=== PATIENT | male | born 1960 | race Caucasian/White ===

== ENCOUNTER 2017-05-14 16:35 | Emergency (ER) | payer OTHER, MEDICAID ==
--- NOTE | 2017-05-14 17:49 | EDPHY ---
H & P Time Seen by Provider: 05/14/17 16:54 HPI/ROS: CHIEF COMPLAINT: SI, M1 HISTORY OF PRESENT ILLNESS: The patient is a 56 y/o male arriving via [employer] officer from senior care on and M1 hold after he made a suicidal statement. He says a few days ago "me and my were getting verbal and she was getting real loud in my ear" and he was ultimately arrested after he struck his . He was in senior care for a few days but says the conditions were horrible so he told officers he was suicidal. He states, "I couldn't hack it there. It was too much for my shoulders and hernias" and "I thought they'd take me to a hospital so I said yeah I'm going to commit suicide." The senior care released him on hurtado and placed him on an M1 hold and transported him here. He denies any current suicidal ideation stating, "I have never been suicidal in my life" and "I'm much happier now that I'm here." He denies any acute complaints. He has a history of bipolar disorder and says he is compliant with his medications and has been admitted 4 times to psychiatric hospitals. REVIEW OF SYSTEMS: Constitutional: no fever, no chills Eyes: No visual changes ENT: No sore throat Respiratory: +chronic cough, no shortness of breath Cardiac: No chest pain Gastrointestinal: No nausea, no vomiting, no abdominal pain Genitourinary: No hematuria, no dysuria Musculoskeletal: No leg pain or swelling Skin: No rash Neurological: No headache, no numbness, no weakness Psychiatric: depression (Mari Vieyra) - Medical/Surgical History PMH: PMH includes: 1. Bipolar disorder - lithium, Seroquel, clonidine; mental health admissions x4 2. Colostomy and multiple abdominal surgeries 3. Abdominal hernias (Mari Vieyra) - Social History Additional Social History: Daily smoker. Lives in [place]. Disabled. (Mari Vieyra) - Physical Exam Exam: General Appearance: Alert, no distress, sitting in bed eating. Eyes: Pupils equal and round, no conjunctival pallor or injection ENT, Mouth: Mucous membranes moist Neck: Normal inspection Respiratory: Lungs are clear to auscultation Cardiovascular: Regular rate and rhythm Gastrointestinal: Abdomen is soft and non- tender Neurological: A&O, nonfocal, normal gait Skin: Warm and dry, no rash Extremities: Nontender, no pedal edema Psychiatric: Mood and affect normal (Mari Vieyra) Constitutional: Initial Vital Signs Temperature (C) 37.2 C 05/14/17 16:35 Heart Rate 63 05/14/17 16:35 Respiratory Rate 16 05/14/17 16:35 Blood Pressure 169/101 H 05/14/17 16:35 O2 Sat (%) 97 05/14/17 16:35 O2 Delivery Mode Room Air Allergies/Adverse Reactions: cefaclor [From Ceclor] Allergy (Mild, Verified 07/24/11 13:12) Anaphylaxis Sulfa (Sulfonamide Antibiotics) Allergy (Mild, Verified 07/24/11 13:12) Anaphylaxis haloperidol [From Haldol] Allergy (Verified 07/24/11 13:12) haloperidol lactate [From Haldol] Allergy (Verified 07/24/11 13:12) morphine Allergy (Verified 07/24/11 13:12) Home Medications: Medication Instructions Recorded Allopurinol 05/14/17 Clonidine HCl 05/14/17 Ibuprofen 05/14/17 Levemir 05/14/17 [place] Carbonate 05/14/17 Metformin HCl 05/14/17 Metoprolol Succinate 05/14/17 Seroquel 05/14/17 traMADol 05/14/17 Medical Decision Making ED Course/Re-evaluation: 0652AM: Patient on M1 hold. Suicidal. Patient has been evaluated and needs mental health placement. Patient signed over to Dr. Aj Crabtree at 7am Shift- change. (Ludwig Hamm) Patient denies any current or prior suicidal ideation and expresses that he was just trying to get out of senior care. He is hemodynamically stable without any acute complaints. Plan for standard psychiatric labs then mental health evaluation. ( Mari Vieyra) Other Provider: 0700 Care assumed by me from Dr Hamm pending placement 0900 patient has been accepted to [place] by Dr. proctor. I have completed the EMT A LA. (Lenny Crabtree) - Data Points Laboratory Results: Laboratory Results 05/14/17 18:25 05/14/17 17:15 Medications Given: Discontinued Medications [place] Carbonate (Lithobid) 300 mg PO EDNOW ONE Stop: 05/15/17 00:22 Last Admin: 05/15/17 01:10 Dose: 300 mg [place] Carbonate (Lithobid) 300 mg PO EDNOW ONE Stop: 05/15/17 07:49 Last Admin: 05/15/17 08:20 Dose: 300 mg Nicotine (Nicoderm Cq) 21 mg TD EDNOW ONE Stop: 05/14/17 17:52 Last Admin: 05/14/17 17:59 Dose: 21 mg Polyethylene Glycol (Miralax) 17 gm PO EDNOW ONE Stop: 05/15/17 07:49 Last Admin: 05/15/17 07:58 Dose: 17 gm Quetiapine Fumarate (Seroquel) 400 mg PO EDNOW ONE Stop: 05/15/17 00:22 Last Admin: 05/15/17 00:30 Dose: 400 mg Tramadol HCl (Ultram) 50 mg PO EDNOW ONE Stop: 05/14/17 17:55 Last Admin: 05/14/17 17:59 Dose: 50 mg Departure - Departure Disposition: Other Psych, Not [facility] Clinical Impression: Suicidal ideation Condition: Good Instructions: Suicide Prevention for Adults (ED) Additional Instructions: Follow up with your psychiatrist this week. Return for worsening of condition. Referrals: [facility],. [Clinic] - As per Instructions Report Scribed for: Mari Vieyra Report Scribed by: Isabel Tenorio Date of Report: 05/14/17 Time of Report: 21:32 Physician Review and Approval Statement: 05/14/17 21:32 Portions of this note were transcribed by a medical radiation dosimetrist. I personally performed a history, physical exam, medical decision making, and confirmed accuracy of information the transcribed note. (Mari Vieyra)
[2017-05-14] MEDS ORDERED: NICOTINE 21 MG/24 HR PATCH TD ONE ×2 (17:51→17:54)
[2017-05-14] MEDS ORDERED: traMADol 50 MG TAB PO ONE (17:54)
[2017-05-14 18:31] LABS: PLATELET COUNT 275 10^3/uL (150-400)
[2017-05-15] MEDS ORDERED: QUEtiapine FUMARATE 200 MG TAB PO ONE (00:21)
[2017-05-15] MEDS ORDERED: LITHIUM CARBONATE ER 300 MG TAB PO ONE ×2 (00:21→07:48)
[2017-05-15] MEDS ORDERED: POLYETHYLENE GLYCOL 3350 17 GM PKT PO ONE (07:48)
[2017-05-15 07:53] VITALS: RESP 16
[2017-05-15 10:23] VITALS: BP 153/94; PULSE 70; TEMP 97.9; O2SAT 96
== END 2017-05-15 10:25 ==
DX: R45.851 Suicidal ideations (principal); F17.200 Nicotine dependence, unspecified, uncomplicated
CPT/HCPCS: 80305; G0480

== ENCOUNTER 2018-02-13 23:12 | Inpatient (IN) | payer MEDICAID, OTHER ==
--- NOTE | 2018-02-13 23:22 | EDPHY ---
H & P Time Seen by Provider: 02/13/18 23:22 HPI/ROS: HPI CHIEF COMPLAINT: Sent from long term concern of little ileostomy output, bilateral lower extremity swelling HISTORY OF PRESENT ILLNESS: 57-year-old male, Sleepy, history of chronic medical problems including hypertension, bipolar disorder, presents emergency room from long term due to possible concern of ileostomy output worsening bilateral lower extremity swelling. Additionally hypertension. Patient arrived to the emergency room where I greeted him and ER room 11. The patient states he has no complaints however he is extremely poor historian and answers hardly any of my questions. [facility] staff at bedside said this close to his baseline. According to long term staff he has not been eating or drinking. Past Medical History: Significant medical history for hypertension, bipolar disorder on lithium, diabetes, ileostomy Past Surgical History: Patient has a ileostomy due to ex lap, perforated bowel Social History: Currently incarcerated. Family History: Noncontributory ROS REVIEW OF SYSTEMS: Extremity limited. Patient does not answer any of my questions. Often answers "I dont know to everything" Exam Constitutional Sleepy, nontoxic appearing, triage nursing summary reviewed, vital signs reviewed, awake/alert. Eyes normal conjunctivae and sclera, EOMI, PERRLA. HENT normal inspection, atraumatic, moist mucus membranes, no epistaxis, neck supple/ no meningismus, no raccoon eyes. Respiratory clear to auscultation bilaterally, normal breath sounds, no respiratory distress, no wheezing. Cardiovascular rate normal, regular rhythm, no murmur, no edema, distal pulses normal. Gastrointestinal soft abdomen, large midline incision, ileostomy left lower quadrant, there is output in the ileostomy comma no rebound, no guarding, normal bowel sounds, no distension, no pulsatile mass. Genitourinary no CVA tenderness. Musculoskeletal bilateral lower extremity pitting edema bilaterally, erythema to bilateral anterior lower legs., full range of motion, no calf swelling, no tenderness of extremities, no meningismus, good pulses, neurovascularly intact. Skin pitting edema, erythema bilateral leg. Neurologic sleepy, does not answer questions, moves all 4 extremities equally , motor intact, sensory intact, CN II-XII intact, normal cerebellar, normal vision, normal speech. Psychiatric flat affect, does not answer questions Heme/Lymph/Immune no lymphadenopathy. Differential Diagnosis: Includes but is not limited to in a particular order electrolyte disturbance, dehydration, lithium toxicity, medication side effect, drug intoxication, sepsis, infection, bowel obstruction Medical Decision Making: IV establishment, blood draw, lactic acid, chest x-ray , KUB, urinalysis, drug screen, lithium level, check electrolytes, chest x-ray EKG troponin re-evaluate. Re-evaluation: EKG interpretation by me on record in [employer] system. Impression time of EKG 2240, sinus rhythm rate of 71 nonspecific intraventricular conduction delay present. No acute ischemia. 1218: Patient noted be somewhat sleepy upon arrival to the emergency room. Unclear if this medication do says he took his nightly Seroquel. CT scan head without contrast negative for acute traumatic injury or bleed. Chest x-ray reviewed by myself. Cardiomegaly but no failure. KUB x-ray reviewed by myself. No evidence of abnormal bowel gas pattern. Patient re-evaluate this time he sleeping resting comfortably. Vital signs stable blood pressure improved. Patient has so for an unremarkable workup for lethargy, bilateral lower extremity edema. I will admit to the hospitalist service given how lethargic he is comma poor historian, bilateral lower extremity edema Troponin is noted be negative EKG nonischemic. Chest x-ray KUB and CT scan head without contrast all reviewed. Chemistry panel reviewed. A blood glucose was low at 41. Will give a amp D50. He has not been eating and drinking. Source: Patient, Police, EMS - Medical/Surgical History Hx Asthma: No Hx Chronic Respiratory Disease: No Hx Diabetes: Yes Hx Cardiac Disease: No Hx Renal Disease: No Hx Cirrhosis: No Hx Alcoholism: No Hx HIV/AIDS: No Hx Splenectomy or Spleen Trauma: No Other PMH: DM, HTN, bipolar, chronic pain - Social History Smoking Status: Current every day smoker Constitutional: Initial Vital Signs Temperature (C) 36.7 C 02/13/18 23:26 Heart Rate 78 02/13/18 23:26 Respiratory Rate 18 02/13/18 23:26 Blood Pressure 156/83 H 02/13/18 23:26 O2 Sat (%) 95 02/13/18 23:26 O2 Delivery Mode Room Air Allergies/Adverse Reactions: cefaclor [From Ceclor] Allergy (Mild, Verified 07/24/11 13:12) Anaphylaxis Sulfa (Sulfonamide Antibiotics) Allergy (Mild, Verified 07/24/11 13:12) Anaphylaxis haloperidol [From Haldol] Allergy (Verified 07/24/11 13:12) haloperidol lactate [From Haldol] Allergy (Verified 07/24/11 13:12) morphine Allergy (Verified 07/24/11 13:12) Penicillins Allergy (Verified 02/14/18 12:07) Home Medications: Medication Instructions Recorded Albuterol [Proventil Inhaler HFA 2 puffs IH Q4H PRN 02/14/18 (*)] Allopurinol [Allopurinol 100 MG 100 mg PO BID 02/14/18 (*)] Fluconazole [Diflucan (*)] 150 mg PO ONCE 02/14/18 Furosemide [Lasix 20 MG (*)] 20 mg PO BID 02/14/18 [place] Carbonate ER [Lithobid 300 300 mg PO HS 02/14/18 mg (*)] Metformin HCl [Metformin 1000 mg] 1,000 mg PO BID 02/14/18 Metoprolol Succinate Xr [Toprol Xl 25 mg PO DAILY 02/14/18 25 mg (*)] Potassium Cl [Klor-Con] 10 meq PO DAILY 02/14/18 QUEtiapine FUMARATE [Seroquel 600 mg PO HS 02/14/18 300mg (*)] Zinc Oxide [Zinc Oxide Ointment 1 naomie TP DAILY 02/14/18 (*)] clonIDINE [Catapres (*)] 0.1 mg PO DAILY 02/14/18 traMADol [Ultram 50 mg (*)] 100 mg PO BID 02/14/18 Medical Decision Making - Data Points Laboratory Results: Laboratory Results 02/13/18 23:55 02/13/18 23:55 Medications Given: Acetaminophen (Tylenol) 650 mg PO Q4HRS PRN PRN Reason: Pain, Mild/Fever, Can Take PO Stop: 08/13/18 01:15 Last Admin: 02/14/18 23:10 Dose: 650 mg Allopurinol (Allopurinol) 100 mg PO BID JOSEPH Stop: 08/13/18 20:59 Last Admin: 02/14/18 19:33 Dose: 100 mg Dextrose (Dextrose 50% Syringe) 25 gm IVP PRN PRN PRN Reason: Hypoglycemia Stop: 08/13/18 02:35 Last Admin: 02/14/18 14:39 Dose: 25 gm Enoxaparin Sodium (Lovenox) 40 mg SC DAILY JOSEPH Stop: 08/13/18 08:59 Last Admin: 02/14/18 09:19 Dose: 40 mg Furosemide (Lasix) 20 mg PO BID JOSEPH Stop: 08/13/18 20:59 Last Admin: 02/14/18 19:33 Dose: 20 mg Ertapenem 1 gm/ Sodium (Chloride) 100 mls @ 200 mls/hr IV Q24H JOSEPH Stop: 03/16/18 02:14 Last Admin: 02/15/18 02:03 Dose: 100 mls Dextrose/Sodium Chloride (D5w Ns) 1,000 mls @ 125 mls/hr IV CONT JOSEPH Stop: 08/13/18 05:44 Last Admin: 02/14/18 05:55 Dose: 1,000 mls Dextrose (D10w) 1,000 mls @ 100 mls/hr IV CONT JOSEPH Stop: 08/13/18 06:44 Last Admin: 02/14/18 20:33 Dose: 1,000 mls [place] Carbonate (Lithobid) 300 mg PO HS JOSEPH Stop: 08/13/18 20:59 Last Admin: 02/14/18 20:18 Dose: 300 mg Quetiapine Fumarate (Seroquel) 600 mg PO HS [facility] Stop: 08/13/18 20:59 Last Admin: 02/14/18 19:33 Dose: 600 mg Discontinued Medications Dextrose (Dextrose 50% Syringe) 25 gm IVP PRN PRN PRN Reason: Dizziness Stop: 08/13/18 01:05 Last Admin: 02/14/18 01:11 MST Dose: 25 gm Sodium Chloride (Ns) 500 mls @ 0 mls/hr IV ONCE ONE PRN Reason: Wide Open Stop: 02/14/18 00:12 Last Admin: 02/14/18 00:19 Dose: 500 mls Sodium Chloride (Ns) 1,000 mls @ 125 mls/hr IV CONT [facility] Stop: 08/13/18 01:59 Last Admin: 02/14/18 03:29 Dose: 1,000 mls Point of Care Test Results: Chemistry 02/13/18 23:59 POC Troponin I 0.01 ng/mL ng/mL (0.00-0.08) Departure - Departure Disposition: [facility] Acute Clinical Impression: Altered mental status, Hypoglycemia, PHILIP (acute kidney injury), Venous stasis Condition: Fair
[2018-02-14 00:05] LABS: PLATELET COUNT 396 10^3/uL (150-400)
[2018-02-14] MEDS ORDERED: NS 500 ML IV ONE (00:11)
[2018-02-14 00:14] LABS: INR 0.97 (0.83-1.16); PROTIME(PATIENT) 13.1 SEC (12.0-15.0)
[2018-02-14] MEDS ORDERED: D50W 25 GM/50 ML SYR IVP ONE (01:06)
[2018-02-14] MEDS ORDERED: D50W 25 GM/50 ML SYR IVP PRN (01:06)
[2018-02-14] MEDS ORDERED: ONDANSETRON 4 MG/2 ML VIAL IVP PRN (01:16)
[2018-02-14] MEDS ORDERED: ONDANSETRON DISINTEGRATING 4 MG TAB PO PRN (01:16)
[2018-02-14] MEDS ORDERED: levOFLOXACIN 500 MG/DEXTROSE 100 ML IV SCH (01:45)
[2018-02-14] MEDS ORDERED: NS 1,000 ML IV SCH (02:00)
[2018-02-14] MEDS ORDERED: ERTAPENEM 1 GM in NS 100 ML IV ONE (02:15)
[2018-02-14] MEDS: ERTAPENEM 1 GM in NS 100 ML IV SCH (02:43)
--- NOTE | 2018-02-14 05:04 | GHP ---
DATE OF ADMISSION: 02/14/2018 PRIMARY CARE PHYSICIAN: Kalina Chavira MD Patient currently incarcerated, under care of [facility]. SOURCE: The patient is not able to provide a significant amount of history. At this time, he is quite somnolent, falls asleep during the interview. EMR was reviewed and case discussed with ED provider. Officer at bedside is very familiar with the patient and reports patient had complained of some abdominal pain at the ostomy output site and had just been increasingly fatigued and somnolent with increasing lower extremity edema. No known complaints of chest pain or shortness of breath. The patient has had quite poor oral intake over the last several days. No known fevers or chills. REVIEW OF SYSTEMS: The patient currently is complaining of chronic coccyx pain. He has a history of a fracture there. Otherwise, he falls asleep and unable to obtain remainder of review of systems. ALLERGIES: Sulfa, penicillin, Ceclor, Haldol. MEDICATIONS: Current medications as per customer strategy manager's office med list: Albuterol inhaled 2 puffs four times daily p.r.n., allopurinol 100 mg twice daily, clonidine 0.1 mg daily, Diflucan 150 mg per day for 3 doses, start date 2017, Lasix 20 mg twice daily, lithium ER 600 mg at bedtime, metformin 1000 mg twice daily, metoprolol 25 mg p.o. daily, potassium 10 mEq daily, Seroquel 600 mg at bedtime, tramadol 100 mg twice daily. Lantus 35 units daily, 15 units HS. VITAL SIGNS: Listed at customer strategy manager's office: Blood pressure 160/90, heart rate 91 , O2 saturation 92%. On 02/11/2018, blood pressure 120/80, pulse 71, O2 saturation 90%. PAST MEDICAL HISTORY: Listed as diabetes type 2, bipolar disorder, chronic pain , HTN, morbid obesity, lower extremity edema, coccyx fracture and chronic pain initial event occurring 7 years ago. PAST SURGICAL HISTORY: Colostomy for history of a perforation, abdominal hernias. FAMILY HISTORY: Unable to obtain secondary to patient's mentation. SOCIAL HISTORY: Patient is currently incarcerated. He has listed history of tobacco use. Unable to clarify if any illicit drug use or alcohol use due to patient's altered mental status. CODE STATUS: Unable to verify with the patient as noted above. He will remain full code. PHYSICAL EXAMINATION: VITAL SIGNS: As listed on patient's [facility] paperwork, vital signs at 9:30 p.m., blood pressure 169/90, pulse 91, O2 saturation 92% on room air. Current vitals upon arrival to the ED: Blood pressure 156/83, heart rate 78, respiratory rate 18, O2 saturation 95% on room air, temperature 36.7. Current vitals available: Blood pressure 104/56, heart rate is 61, respiratory rate 16, O2 saturation 99 on room air, and temperature 36.9. GENERAL: No acute distress. Patient appears chronically ill. He is somnolent, confused. He will open his eyes and follow a few simple commands, but falls asleep. Morbidly obese gentleman appears older than stated age. HEAD : Normocephalic, atraumatic. EYES: Limited evaluation secondary to patient's somnolence, but pupils are equal, round, with decreased reactivity to light bilaterally and symmetric. No scleral icterus, conjunctival injection. ENT: Mucous membranes appear dry. Dentition in fair condition. No nasal discharge. NECK: Supple. Trachea midline. CV: Slightly bradycardic in the 50s. No murmurs, rubs, or gallops appreciated. RESPIRATORY: Unlabored breathing. Diminished in air movement and inspiratory effort, but otherwise clear to auscultation bilaterally. ABDOMEN: Obese, nondistended, soft. Patient has a colostomy bag on the right lower quadrant. There is minimal to no stool in the ostomy bag. His abdomen is quite soft. No apparent distention. No guarding. The patient has a large midline surgical scar. : No suprapubic tenderness to palpation. No Trivedi catheter in place. SKIN: Erythema below the pannus. His lower extremities have chronic appearing skin changes with some more acute appearing erythema that is blanchable. He has significant 2 to 3+ pitting edema bilateral lower extremities. He has some bruising on his toes. No other rashes or sores observed on exposed extremities. NEURO: Limited assessment secondary to patient's somnolence. When he is awake, there is no apparent facial drooping. He is able to move extremities and roll to his side independently. PSYCH: Patient is confused. He is not agitated. Officer at bedside reports that generally patient's baseline personality is to be abrasive and uncooperative. LABORATORY STUDIES: WBC is 11.85, H and H 13.9, 41.6, MCV of 89.3, platelet count is 396. No bands. PT is 13.1, INR 0.97, PTT is 33.3. ABG, pH is 7.39, pCO2 is 45, PO2 66, bicarb 27, O2 saturation 92, base excess 1.8. Patient's initial VBG: Lactic acid 2.3. After 500 cc bolus of saline, declined to 1.8. Sodium is 139, potassium is 4.7, chloride 98, CO2 is 29, anion gap is 12, BUN is 23, creatinine is 1.4. The patient's baseline creatinine is 0.9 to 1.1. Glucose 41, repeat after D50 is 115. Magnesium 1.8, total bilirubin is 1.0, ALT is 43, AST is 38, alk phos is 187. Troponin POC is 0.01. BTNP is 53. Total protein 7.9, albumin 4.4, lipase 35. TSH is 1.480. UA: Specific gravity 1.004, pH of 6.0, 1+ blood, 3+ leuk esterase, RBCs 5-10, WBCs 50-182. Moderately turbid yellow urine. U-tox is negative. [place]thing[place] level 1.4. Ethyl alcohol negative. CT head: Preliminary report reviewed, image reviewed. Negative. Abdominal x- ray image reviewed, report is still pending. Nonspecific bowel gas pattern. No signs of obstruction. Chest showing some cardiomegaly. No consolidation. No evidence of pneumonia. EKG was reviewed myself showing sinus rhythm without any acute ST changes. QTc 48. Right bundle branch block and left posterior fascicular block. No previous EKGs for comparison. ASSESSMENT/PLAN: A 57-year-old gentleman with a past medical history significant for bipolar disorder, diabetes, chronic pain, morbid obesity, hypertension, who presents to the emergency department today with several day history of increasing lethargy, declining oral intake. 1. Acute encephalopathy, likely multifactorial, including infectious process with a UTI, psychiatric related to medications. Patient's lithium level is minimally elevated. He does appear dehydrated. IV fluids in process. He also has hypoglycemia, which has been corrected, and he remains quite somnolent. He is afebrile without a leukocytosis. He does not meet sepsis criteria. Urine does appear to be quite abnormal. Urine culture is pending. No previous history of UTIs listed. The patient initially did complain of some abdominal pain; however, x-ray and physical exam are not impressive for an acute process. Abdomen is soft and nonsurgical. If patient does not show any significant improvement after initiation of IV fluids and antibiotics, consider abdominal scan. 2. Urinary tract infection. Patient with pyuria. Unable to assess for any kind of symptoms, but has generalized weakness for last several days and decreased appetite. Given his prolonged QT and his use of antipsychotics, patient has been started on ertapenem as he does have Ceclor allergy. I was not able to clarify with him his exact allergy due to his mentation. Will await urine cultures and adjust antibiotics as appropriate. 3. Acute kidney injury, likely prerenal in nature. Patient has received a small IV fluid bolus in the emergency department. He has no previous listed history of heart failure. BTNP is negative. We will go ahead and continue with aggressive IV fluid hydration, repeat a BMP in the morning. 4. Hypoglycemia. The patient is currently only on metformin. He has not had a significant amount oral intake in the last 2-3 days by report. 5. Acute kidney injury. Hold off on additional treatment. 6. Diabetes. The patient will be placed on hypoglycemia protocol and Accu- Cheks will be monitored q.6 until patient's mentation does improve. If he continues to have a decline in his glucose levels, then will consider initiation of D5 supplementation as IV. patient with PHILIP and on long acting insulin likely worsening clearance and subsequently causing hypoglycemia. patient also with reported poor oral intake for the last 2-3 days. continue with IVF hydration as noted. 7. Increasing lower extremity edema. Despite this report, patient does appear clinically dehydrated. Will continue on IV fluids. BTNP is not elevated. His lung vargas are clear, but he does have some cardiomegaly. We will obtain an echocardiogram. 8. Benign essential hypertension. Currently, patient's blood pressures are declining low normal. Continue with IV fluids, likely related to hypovolemia. Intravascular volume depletion. Continue to monitor. 9. Bipolar disorder. Patient unable to swallow any medications safely. Hold off on the Seroquel until patient's mentation does improve slightly. 10. Diabetes type 2, as noted above. Holding medications. Accu-Cheks in setting of hypoglycemia. When patient's diet is advanced, resume his home metformin. 11. Chronic low back pain. Holding any narcotic at this time as patient is quite somnolent, altered. 12. Morbid obesity. BMI of greater than 44. 13. Fluids, electrolytes, nutrition. Normal saline at 125 per hour at this time. Again, no evidence of CHF, none listed on his previous history. He does have lower extremity edema, but I suspect this is due to venous insufficiency. Electrolyte monitoring, replacement if needed. Nutrition: Advance diet as tolerated. Currently, patient is too somnolent to safely eat anything. 14. Prophylaxis. SCDs and Lovenox renally dosed if needed. 15. Code status: Will be full at this time. Unable to verify as patient is quite altered. 16. Disposition: Patient admitted to observation status at this time pending IV fluids, repeat labs, and antibiotic therapy. Additional studies as noted above. ADDENDUM 0735 Patient remained quite somnolent after arrival to the medical floor. Patient AM labs revealed a BS of 29. Patient given additional amp of D50 and started on D5NS gtt. Repeated glucose testing noting patient BS declining again. He has PHILIP and long acting insulin with poor oral intake last several days. Will transfer patient to the ICU for frequent accuchecks and D10W. Patient wakes but remains somnolent and generalized weakness. moves all extremities and no focal deficits noted. Admission status changed to Inpatient status. Total critical care time 35 minutes. /[id number]/MODL MTDD
[2018-02-14 05:23] LABS: CREATINE KINASE 31 IU/L (0-224)
[2018-02-14] MEDS: D50W 25 GM/50 ML SYR IVP PRN ×2 (05:29→14:39)
[2018-02-14] MEDS ORDERED: D5W NS 1,000 ML IV SCH (05:45)
[2018-02-14] MEDS: D10W 1,000 ML IV SCH ×2 (07:44→20:33)
[2018-02-14] MEDS: ENOXAPARIN 40 MG/0.4 ML SYR SC SCH (09:19)
--- NOTE | 2018-02-14 12:04 | HOSPPROG ---
Hospitalist Progress Note Assessment/Plan: Hypoglycemia - Patient reports being on levemir at home, decreased PO intake for past 2-3 days - BG decreased to 20's, s/p D50, started on D10 infusion - BG improved to 150 this AM on D10 gtt, will decrease gtt - Wean D10 gtt as tolerated Acute Encephalopathy - Multifactorial, in setting of hypoglycemia, UTI, psychiatric related to medications - [place] level minimally elevated on admission - mental status improving this morning - Management of UTI and Hypoglycemia as outlined Urinary Tract Infection - UA on admission LE +, WBC 50-182, reports dysuria - Has a hx of Sulfa, Penicillin allergies, pharmacy looking into those - Started on Ertapenum in ED, will continue for now - Urine cultures pending Acute Kidney Injury - Cr 1.4 on admission, no baseline known - Likely in setting of dehydration, UTI - Continue to monitor BMP, I/O Lower Extremity Edema/Stasis Dermatitis - B/l LE with 2+ nonpitting edema, stasis dermatitis changes - TTE ordered - Patient reports being on Lasix at home, med rec pending T2DM - Management of hypoglycemia as above - Restart anti-hyperglycemics when hypoglycemia resolved HTN - BP WNL - Pending med rec continue home meds Bipolar d/o - Restart home Seroquel, pending med reconciliation FEN: D10 infusion, diabetic diet PPx: Lovenox, SCDs Code: FULL Dispo: Pending clinical course Subjective: Patient does not report complaints Objective: Vital Signs Temp Pulse Resp BP Pulse Ox 36.3 C 58 L 12 114/60 100 02/14/18 08:00 02/14/18 08:00 02/14/18 08:00 02/14/18 08:00 02/14/18 08:00 Laboratory Results 02/14/18 04:36 02/13/18 02/14/18 02/15/18 06:59 05:59 05:59 Intake Total 110 Balance 110 PT 13.1 SEC (12.0-15.0) 02/13/18 23:55 INR 0.97 (0.83-1.16) 02/13/18 23:55 - Physical Exam Constitutional: chronically ill appearing, obese Eyes: PERRL Ears, Nose, Mouth, Throat: dry mucous membranes Cardiovascular: regular rate and rhythym, edema (2+ nonpitting b/l LE) Respiratory: no respiratory distress Gastrointestinal: soft, non-tender abdomen, other (ostomy in place) Genitourinary: no bladder tenderness Skin: warm, other (stasis dermatitis changes in b/l LE) Neurologic: AAOx3 Psychiatric: not encephalopathic ICD10 Worksheet Patient Problems: Problems Problem Status Onset PHILIP (acute kidney injury) Acute Encephalopathy acute Acute Hypoglycemia Acute UTI (urinary tract infection) Acute - ICD10 Problem Qualifiers (1) Encephalopathy acute (2) PHILIP (acute kidney injury) (3) Hypoglycemia (4) UTI (urinary tract infection)
--- NOTE | 2018-02-14 15:03 | ECHO ---
[email or web address] [address] [address] Main: [phone] Fax: Transthoracic Echocardiogram Name: DAKSHA GUILLAUME MR#: [id number] Study Date: 02/14/2018 Study Time: 11:34 AM Date of : 1960 Age: 57 year(s) Height: 182.9 cm (72 in.) Weight: 111.13 kg (245 lb.) BSA: 2.32 m2 Gender: Male Examination: Echo Indication: LE edema, fatigue 11 Image Quality: Adequate Contrast: Requested by: Chiqui Cline BP: 141 mmHg/72 mmHg Heart Rate: Rhythm: Indication: LE edema, fatigue Procedure Staff [employer] Weapons Equipment Operator: Angelique Ac RDCS Reading Physician: Mo Harman MD Requesting Provider: Conclusions: 1)Normal LV systolic function with a LVEF of 57%. 2)Mild LV enlargement noted. 3)Mild concentric LVH noted. 4)Mild left atrial enlargement noted. 5)Trivial to mild MR without MV prolapse. 6)Mild TR noted. 7)Trivial to mild circumferential pericadial effusion noted with no tamponade signs. Measurements: Chambers Valvular Assessment AV/MV Valvular Assessment TV/PV Normal Normal Normal Name Value Range Name Value Range Name Value Range Ao Abril (2D): 3.0 cm (1.4 cm-2.6 AV Vmax: 1.57 m/s (1 m/s-1.7 PV Vmax: 1.06 m/s (0.6 m/s-0.9 cm) m/s) m/s) IVSd (2D): 1.2 cm (0.6 cm-1.1 AV maxP mmHg ( - ) PV PGmax: 4 mmHg ( - ) cm) AV meanP mmHg ( - ) LVDd (2D): 5.8 cm (4.2 cm-5.9 ELANA (VTI): 2.9 cm ( - ) cm) MV E Vmax: 0.88 m/s ( - ) LVDs (2D): 3.6 cm (2.1 cm-4 MV A Vmax: 0.84 m/s ( - ) cm) MV E/A: 1.05 ( - ) LVPWd (2D): 1.1 cm (0.6 cm-1 cm) MV PHT: 0.054 s ( - ) LVOTd 2.2 cm 2.2 cm mm MVA (PHT): 4.1 s ( - ) LVEF (BP): 57 % (>=55 %) RVDd(2D): 3.9 cm (1.9 cm-3.8 cmmm) Continued Measurements: Chambers Valvular Assessment AV/MV Patient: DAKSHA GUILLAUME Study Date: 02/14/2018 Page 1 of 2 11:34 AM Name Value Name Value LADs: 3.7 cm MV DecTime: 187 m/s LADs Lon.0 cm MV E' Septal: 0.07 m/s LA Area: 22.9 cm2 MV E/E' Septal: 12.70 LA Volume: 68 ml MV E/E' Lateral: 10.20 LA Volume Index: 29.3 ml/m2 RA Area: 20.5 cm2 Additional Vessels Name Value Ao Ascendin.2 cm Inferior Vena Cava: 2.3 cm Findings: Left Ventricle: Dilated left ventricle. Mild concentric LV hypertrophy. Normal global systolic LV function. EF is 57 %. Normal diastolic LV function. Possible subtle basal inferior hypokinesis. Right Ventricle: Normal size right ventricle. Normal RV function. Left Atrium: The left atrium is mildly dilated. Right Atrium: The right atrium is normal in size. Mitral Valve: The mitral valve is normal in appearance and function. Trivial to mild mitral regurgitation. No mitral stenosis is present. Aortic Valve: The aortic valve is tri-leaflet. There is no significant aortic valve regurgitation. No aortic valve stenosis is present. Tricuspid Valve: The tricuspid valve is normal in appearance and function. Mild tricuspid regurgitation is present. Pulmonic Valve: The pulmonic valve is normal in appearance and function. Aorta: The aorta is normal. Normal size aortic root measuring 3.0 cm. Normal size ascending aorta measuring 3.2 cm. IVC: The IVC is mildly dilated. Pericardium: Trivial pericardial effusion. There is pericardial fat. (No Signature Object) Patient: DAKSHA GUILLAUME Study Date: 02/14/2018 Page 2 of 2 11:34 AM [id number]
[2018-02-14] MEDS ORDERED: ALBUTEROL 60 PUFFS/8 GM MDI IH PRN (15:22)
--- NOTE | 2018-02-14 16:27 | ASMTCMCOM ---
CM Note CM Note Notes: 57yo male from the residential admitted for Encephalopathy, PHILIP, Hypoglycemia, UTI. He has a Hx of DM-2, Obesity, Chronic pain-coccyx fx, HTN, Colostomy-abd hernias-perf, Bipolar. Patient transferred to ICU from [facility] to follow for discharge needs. Date Signed: 02/14/2018 04:26 PM Electronically Signed By:Violette Biggs LCSW
[2018-02-14] MEDS: FUROSEMIDE 20 MG TAB PO SCH (19:33)
[2018-02-14] MEDS: ALLOPURINOL 100 MG TAB PO SCH (19:33)
[2018-02-14] MEDS: QUEtiapine FUMARATE 300 MG TAB PO SCH (19:33)
[2018-02-14] MEDS: LITHIUM CARBONATE ER 300 MG TAB PO SCH (20:18)
[2018-02-14] MEDS: ACETAMINOPHEN 325 MG TAB PO PRN (23:10)
[2018-02-15] MEDS: ERTAPENEM 1 GM in NS 100 ML IV SCH (02:03)
[2018-02-15 04:54] LABS: PLATELET COUNT 333 10^3/uL (150-400)
[2018-02-15] MEDS: ACETAMINOPHEN 325 MG TAB PO PRN ×2 (05:11→20:00)
[2018-02-15] MEDS: D10W 1,000 ML IV SCH (05:14)
[2018-02-15] MEDS: METOPROLOL SUCCINATE XR 25 MG TAB PO SCH (09:04)
[2018-02-15] MEDS: ENOXAPARIN 40 MG/0.4 ML SYR SC SCH (09:04)
[2018-02-15] MEDS: ALLOPURINOL 100 MG TAB PO SCH ×2 (09:04→20:01)
[2018-02-15] MEDS: FUROSEMIDE 20 MG TAB PO SCH ×2 (09:04→20:01)
[2018-02-15] MEDS: ZINC OXIDE 56.7 GM OINTTUBE TP SCH (09:08)
[2018-02-15] MEDS ORDERED: PNEUMOCOCCAL 0.5ML VACCINE VIAL IM ONE (10:46)
--- NOTE | 2018-02-15 13:22 | HOSPPROG ---
Hospitalist Progress Note Assessment/Plan: Hypoglycemia - Patient reports being on levemir and metformin at home, decreased PO intake for past 2-3 days, PHILIP on admission - BG decreased to 20's, s/p D50, started on D10 infusion on 02/14 - Wean D10 gtt as tolerated Acute Encephalopathy - Multifactorial, in setting of hypoglycemia, UTI, psychiatric related to medications - [place] level minimally elevated on admission - mental status improved this morning - Management of UTI and Hypoglycemia as outlined Urinary Tract Infection - UA on admission LE +, WBC 50-182, reports dysuria - Has a hx of Sulfa, Penicillin allergies, pharmacy looking into those - Started on Ertapenum in ED, will switch to Cipro this AM - Urine cultures pending Acute Kidney Injury - Cr 1.4 on admission, no baseline known, 1.2 this AM - Likely in setting of dehydration, UTI - Continue to monitor BMP, I/O Lower Extremity Edema/Stasis Dermatitis - B/l LE with 2+ nonpitting edema, stasis dermatitis changes - TTE ordered, showed normal EF and diastolic function - Patient reports being on Lasix at home, restarted yesterday T2DM - Management of hypoglycemia as above - Restart anti-hyperglycemics when hypoglycemia resolved HTN - BP WNL, continue home medications including Clonidine, Metoprolol Bipolar d/o - Restart home Seroquel FEN: D10 infusion, diabetic diet PPx: Lovenox, SCDs Code: FULL Dispo: Pending clinical course, d/c back to halfway after medically clear Subjective: Patient reports no complaints this AM Objective: Vital Signs Temp Pulse Resp BP Pulse Ox 36.9 C 73 14 130/79 H 93 02/15/18 10:00 02/15/18 12:00 02/15/18 12:00 02/15/18 12:00 02/15/18 12:00 Laboratory Results 02/15/18 04:15 02/15/18 04:15 02/14/18 02/15/18 02/16/18 05:59 05:59 05:59 Intake Total 2809 Balance 2809 PT 13.1 SEC (12.0-15.0) 02/13/18 23:55 INR 0.97 (0.83-1.16) 02/13/18 23:55 ICD10 Worksheet Patient Problems: Problems Problem Status Onset PHILIP (acute kidney injury) Acute Altered mental status Acute Encephalopathy acute Acute Hypoglycemia Acute UTI (urinary tract infection) Acute Venous stasis Acute - ICD10 Problem Qualifiers (1) Encephalopathy acute (2) PHILIP (acute kidney injury) (3) Hypoglycemia (4) UTI (urinary tract infection)
--- NOTE | 2018-02-15 16:49 | PDMN ---
Medical Necessity Medical necessity: [facility] M300 UTI and M134 Diabetes, Hypoglycemia: 57 yo transferred from [facility] w/ acute encephalopathy secondary likely infection/UTI, hypoglycemia and psych meds. PHILIP on admit. Initially OBS but pt cont to have HTN, elevated WBC, labile BG, +urine cx for enterococcus faecalis, remains on dextrose drip, pt also w/ BLE 2+ nonpitting edema, Lasix restarted. pt requires additional MN for ongoing monitoring and tx for the above. Hx DM, HTN , bipolar. Change to IP status per MD order 01/15/18 @ 1416
[2018-02-15] MEDS ORDERED: MAGNESIUM HYDROXIDE 30 ML UDCUP PO PRN (17:16)
[2018-02-15] MEDS ORDERED: POLYETHYLENE GLYCOL 3350 17 GM PKT PO PRN (17:16)
[2018-02-15] MEDS ORDERED: LACTULOSE 20 GM/30 ML UDCUP PO PRN (17:16)
[2018-02-15] MEDS ORDERED: BISACODYL 10 MG SUPP PR PRN (17:16)
[2018-02-15] MEDS ORDERED: CIPROFLOXACIN 500 MG TAB PO SCH (20:00)
[2018-02-15] MEDS: QUEtiapine FUMARATE 300 MG TAB PO SCH (20:01)
[2018-02-15] MEDS: LITHIUM CARBONATE ER 300 MG TAB PO SCH (20:01)
[2018-02-15] MEDS: SENNOSIDES/DOCUSATE SODIUM TAB PO SCH (20:05)
[2018-02-15] MEDS ORDERED: traMADol 50 MG TAB PO PRN (21:59)
[2018-02-15] MEDS: NICOTINE 21 MG/24 HR PATCH TD SCH (22:49)
--- NOTE | 2018-02-16 05:48 | CPEKG ---
Test Reason : OPEN Blood Pressure : / mmHG Vent. Rate : 071 BPM Atrial Rate : 067 BPM P-R Int : 063 ms QRS Dur : 120 ms QT Int : 449 ms P-R-T Axes : 018 100 035 degrees QTc Int : 488 ms Accelerated junctional rhythm RBBB and LPFB Confirmed by Ludwig Hamm ([id number]) on 02/16/2018 5:47:37 AM Referred By: Confirmed By:Ludwig Hamm
[2018-02-16 08:07] VITALS: BP 138/91
--- NOTE | 2018-02-16 09:18 | PDIAF ---
- Diagnosis Diagnosis: Urinary Tract Infection, Hypoglycemia Code Status: Full Code - Medication Management Parts Sales Counterperson Antibiotics: Ciprofloxacin 500 mg BID for the net 3 days Senior [facility] Antibiotic Stop Date: 02/19/18 Discharge Medications: electronically signed and located in the Home Medication List. - Orders Diet Recommendation: ADA 2000 consistent carb - Follow Up Care Current Providers and Referrals: NONE *PRIMARY CARE P,. [Primary Care Provider] - As per Instructions
--- NOTE | 2018-02-16 09:21 | PDDCSUM ---
Discharge Summary Discharge Summary: Date of Admission: 02/15/2018 Date of Discharge: 02/16/2018 Consults: Critical Care Followup: PCP to continue to monitor blood glucose Hospital Course Problem List: Hypoglycemia - Patient on levemir and metformin at home, decreased PO intake for past 2-3 days, PHILIP on admission - BG decreased to 20's, s/p D50, started on D10 infusion on 02/14 - Weaned D10 gtt on 02/15 - Will continue to hold long acting insulin, restart as indicated as OP Acute Encephalopathy - Multifactorial, in setting of hypoglycemia, UTI, psychiatric related to medications - [place] level minimally elevated on admission - mental status improved - Management of UTI and Hypoglycemia as outlined Urinary Tract Infection - UA on admission LE +, WBC 50-182, reports dysuria - Has a hx of Sulfa, Penicillin allergies, pharmacy looking into those - Started on Ertapenum in ED, switched to Levaquin on 02/15, will continue to complete 5 day course (end date 02/19) - Urine cultures growing Enterococcus Acute Kidney Injury - Cr 1.4 on admission, no baseline known, 1.2 on 02/15 - Likely in setting of dehydration, UTI - Continue to monitor BMP, I/O Lower Extremity Edema/Stasis Dermatitis - B/l LE with 2+ nonpitting edema, stasis dermatitis changes - TTE ordered, showed normal EF and diastolic function - Patient reports being on Lasix at home, restarted 20 mg bID T2DM - Management of hypoglycemia as above - Restart home Metformin upon discharge, will continue to hold Long actin insulin as above HTN - BP WNL, continue home medications including Clonidine, Metoprolol Bipolar d/o - Continue home Seroquel Time spent on discharge was >35 minutes with >50% of time spent on patient education and counseling
--- NOTE | 2018-02-16 09:41 | ASMTLACE ---
LACE Length of stay for Answers: 1 day current admission Acuity / Level of Answers: No Care: Did the patient have an inpatient admission? Comorbidities - select Answers: Diabetes (uncontrolled or all that apply controlled) Other Notes: Obesity, HTN, Chronic pain-coccyx fx # of Emergency department Answers: 1-2 visits in the last 6 months Social determinants Answers: Mental health diagnosis (anxiety, depression, pers onality disorders, etc.) Score: 7 Date Signed: 02/16/2018 09:40 AM Electronically Signed By:Violette Biggs LCSW
[2018-02-16] MEDS: ENOXAPARIN 40 MG/0.4 ML SYR SC SCH (09:54)
[2018-02-16] MEDS: METOPROLOL SUCCINATE XR 25 MG TAB PO SCH (09:55)
[2018-02-16] MEDS: SENNOSIDES/DOCUSATE SODIUM TAB PO SCH (09:55)
[2018-02-16] MEDS: NICOTINE 21 MG/24 HR PATCH TD SCH (09:55)
[2018-02-16] MEDS: ALLOPURINOL 100 MG TAB PO SCH (09:55)
[2018-02-16] MEDS: FUROSEMIDE 20 MG TAB PO SCH (09:55)
--- NOTE | 2018-02-16 09:55 | ASDISCHSUM ---
Discharge Information Plan Status: Medically Cleared to Leave:02/15/2018 Discharge Date:02/15/2018 CM D/C Disposition:Law Enforcement/Court/Longterm [place] D/C Disposition:GOV Projected Discharge Date:02/16/2018 10:00 AM Transportation at D/C:Law Enforcement/Police Discharge Delay Reason: Follow-Up Date:02/16/2018 10:00 AM Discharge Slot:1 - 8:01 am - 12:00 noon Final Diagnosis:Hypoglycemia, Encephalopathy, UTI, Bilateral LE edema Placement Information Patient Contact Information Contact Name:MIKEL Relationship:Mother Address:[address] Work Phone: [facility]:[place] Alternate Phone: [facility]/Zip Code:[place] [address] Email: Financial Information Financial Class:Medicare Primary Plan Desc:MEDICARE OUTPATIENT Primary Plan Number:[id number] Secondary Plan Desc: Secondary Plan Number: Assessment Information LACE LACE Length of stay for Answers: 1 day current admission Acuity / Level of Answers: No Care: Did the patient have an inpatient admission? Comorbidities - select Answers: Diabetes (uncontrolled or all that apply controlled) Other Notes: Obesity, HTN, Chronic pain-coccyx fx # of Emergency department Answers: 1-2 visits in the last 6 months Social determinants Answers: Mental health diagnosis (anxiety, depression, pers onality disorders, etc.) Score: 7 Date Signed: 02/16/2018 09:40 AM Electronically Signed By:Violette Biggs LCSW [facility] Progress Note CM [place] CM Note Notes: 57yo male from the skilled nursing admitted for Encephalopathy, PHILIP, Hypoglycemia, UTI. He has a Hx of DM-2, Obesity, Chronic pain-coccyx fx, HTN, Colostomy-abd hernias-perf, Bipolar. Patient transferred to ICU from [facility] to follow for discharge needs. Date Signed: 02/14/2018 04:26 PM Electronically Signed By:Violette Biggs LCSW Case Management Discharge Plan Note Case Management Discharge Discharge Order Complete? Answers: Yes Patient to Obtain Answers: Other Notes: [facility] Medications Transportation Arranged Answers: Other Notes: Police Dept Transport will Pick (Date 02/16/2018 10:00 AM & Time) Faxed Final Orders Answers: Yes Notes: to skilled nursing Discharge Comments Notes: Patient has been discharge back to the skilled nursing. Longterm clinic contacted and they have the ABX needed for patient. Sent Orders, Med list, Discharge Summary by fax to skilled nursing and gave full records incl the above to precinct police lieutenant as a hard copy for skilled nursing clinic. Date Signed: 02/16/2018 09:54 AM Electronically Signed By:Violtete Biggs LCSW Intervention Information Intervention Type:*JOSEPH-Signed Date of Service:02/15/2018 10:23 AM Patient Type:Observation Staff Member:Rae Hankins Hours: Discipline: Severity: Comment:
--- NOTE | 2018-02-16 09:55 | ASMTDCNOTE ---
Case Management Discharge Discharge Order Complete? Answers: Yes Patient to Obtain Answers: Other Notes: [facility] Medications Transportation Arranged Answers: Other Notes: Police Dept Transport will Pick (Date 02/16/2018 10:00 AM & Time) Faxed Final Orders Answers: Yes Notes: to [facility] Discharge Comments Notes: Patient has been discharge back to the [facility]. Skilled Nursing clinic contacted and they have the ABX needed for patient. Sent Orders, Med list, Discharge Summary by fax to [facility] and gave full records incl the above to police magistrate as a hard copy for [facility] clinic. Date Signed: 02/16/2018 09:54 AM Electronically Signed By:Violette Biggs LCSW
[2018-02-16] MEDS: ZINC OXIDE 56.7 GM OINTTUBE TP SCH (09:56)
== END 2018-02-16 11:30 | DRG 71 ==
LOC: EDUNIT# → F3N 02-14 02:11 → F2N 02-14 07:43 → OBSVTOIN 02-15 14:16
PROVIDERS: ADMIT Family Medicine; ATTEND Family Medicine
DX: G93.49 Other encephalopathy (principal); N17.9 Acute kidney failure, unspecified; N39.0 Urinary tract infection, site not specified; Z68.41 Body mass index [BMI] 40.0-44.9, adult; E11.649 Type 2 diabetes mellitus with hypoglycemia without coma; I10 Essential (primary) hypertension; F31.9 Bipolar disorder, unspecified; I87.2 Venous insufficiency (chronic) (peripheral); E86.0 Dehydration; E66.01 Morbid (severe) obesity due to excess calories; Z23 Encounter for immunization; Z79.84 Long term (current) use of oral hypoglycemic drugs; Z93.2 Ileostomy status; Z88.0 Allergy status to penicillin
CPT/HCPCS: 80305; 84484-PO; 96374; G0009; G0378; G0480; J1335; J1650